=== PATIENT | male | born 1985 | race African-American/Black ===

== ENCOUNTER 2020-12-09 12:31 | Emergency (ER) | payer SELFPAY ==
[~2020-12-09] VITALS: Ht 177.8 cm; Wt 100.0 kg
[2020-12-09] MEDS ORDERED: MAGNESIUM/ALUMINUM HYDROXIDE/SIMETHICONE 30ML UDC PO STA (12:56)
[2020-12-09] MEDS ORDERED: VISCOUS LIDOCAINE 2% 15 ML UDC PO STA (12:56)
[2020-12-09] MEDS ORDERED: ONDANSETRON 4MG ODT PO ONE (13:00)
[2020-12-09] MEDS ORDERED: FAMO-135 MT (13:05)
[2020-12-09] MEDS ORDERED: PROT40 PO (13:05)
[2020-12-09 13:30] VITALS: BP 161/109
== END 2020-12-09 13:40 | disposition home or self-care (01) ==
LOC: ER 12:31
DX: K21.9 Gastro-esophageal reflux disease without esophagitis (principal); K29.70 Gastritis, unspecified, without bleeding; R07.9 Chest pain, unspecified; Z79.899 Other long term (current) drug therapy
CPT/HCPCS: 93005; 99283; Q0162; 99284